=== PATIENT | female | born 1965 | race Caucasian/White ===

== ENCOUNTER → 2020-01-28 15:26 | Outpatient (BNVA) | payer OTHER, SELFPAY | PROVIDERS: Family Provider Family Medicine; PCP Family Medicine; Visit Provider Nurse Practitioner | DX: I10 Essential (primary) hypertension (principal); S30.861A Insect bite (nonvenomous) of abdominal wall, initial encounter; N39.0 Urinary tract infection, site not specified | CPT/HCPCS: 80053; 80061; 81003 ==

== ENCOUNTER → 2020-05-09 13:56 | Outpatient (BNVA) | payer OTHER, SELFPAY | PROVIDERS: Family Provider Family Medicine; PCP Family Medicine; Visit Provider Nurse Practitioner | DX: I10 Essential (primary) hypertension (principal) | CPT/HCPCS: 80053; 80061; 81003; 84443 ==

== ENCOUNTER 2020-05-11 09:50 | Day surgery (SDC) | payer OTHER, SELFPAY ==
[2020-05-09 11:19] VITALS: BMI 38.3
[2020-05-11 10:06] VITALS: BP 142/96; PULSE 68; RESP 18; TEMP 36.6; O2SAT 98
[2020-05-11] MEDS: sodium chloride 0.9% 1,000 ML 30 ML IV (10:16)
--- NOTE | 2020-05-11 10:45 | P.ANESASSM_ITS ---
Pre-Anesthetic Assessment Pre-Anesthetic Assessment: Height/Weight: Height 1.57 m Weight 92.079 kg Temp Pulse Resp BP Pulse Ox 97.8 F 68 18 142/96 98 05/11/20 10:06 05/11/20 10:06 05/11/20 10:06 05/11/20 10:06 05/11/20 10:06 Preop Diagnosis: Screening colonoscopy Proposed Procedure: Operation Date: 05/11/20 11:15 Proposed Procedures p Colonoscopy(Not Applicable) - Adonay Domingo MD Was Beta Shea taken within 24 hours: N/A Last intake: Intake Last Liquid Date 05/10/20 Last Liquid Time 23:59 Last Solid Date 05/09/20 Last Solid Time 18:00 Social: Social History: Tobacco and No alcohol Exam: Pre-Anes Outpt Exam: alert, oriented x 3, clear to auscultation bilaterally and regular rate & rhythm Airway: Submandibular: WNL Cervical ROM: WNL MP: 1 History/ROS: No significant complaints Pulmonary: Pulmonary: None reported CV/HEM: CV/HEM: HTN : : None reported Hepatic: Hepatic: None reported GI: GI: GERD Metabolic: Metabolic: None reported Musc/skel: Musc/skel: None reported Neuropsych: Neuropsych: Depression Anesthetic Plan: ASA status: 2 Anesthesia: MAC Meds/Allergies Current Medications: Current Medications Generic Name Dose Route Start Last Admin Trade Name Freq PRN Reason Stop Dose Admin Sodium Chloride 1,000 mls @ 30 ml s/hr 05/11/20 10:00 05/11/20 10:16 Sodium Chloride 0.9% IV 30 mls/hr .Q24H TED Administration PFSH Anesthesia PFSH: Medical History Hot flashes Symptoms controlled on paroxetine since 2018. Hypertension Reports having had hypertension in the past in 2011 or 2012. Symptoms are well controlled on medication managed by her primary care provider Selvin Pinzon. Mood changes States that since reaching menopause she has been having mood changes. She was initially on Pristiq however now symptoms are controlled with paroxetine managed by her primary care provider. She does not see a therapist or a psychiatrist. No pertinent past medical history Denies history of Diabetes, seizures, DVT/PE, asthma. Her primary care provider is EDY Millard Surgical History History of cholecystectomy laparoscopic procedure performed in [place] in her late 40s. 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
--- NOTE | 2020-05-11 11:20 | P.HP_ITS ---
Same Day Surgery H&P Indication for Procedure/HPI DATE OF PROCEDURE: May 11, 2020 CHIEF COMPLAINT/INDICATIONFOR SURGICAL PROCEDURE: Screening colonoscopy PREOP DIAGNOSIS: Screening colonoscopy PLANNED PROCEDRUE: Operation Date: 05/11/20 11:15 Proposed Procedures p Colonoscopy(Not Applicable) - Adonay Domingo MD This is a pleasant 55 years old female patient was referred to my practice to discuss screening colonoscopy, patient never had one before she denies bleeding per rectum except for some hemorrhoidal disease, no history of colon cancer that she is aware of and no weight loss. ROS All systems have been reviewed negative except as per the above or per problem list Medications/Allergies* Home Medications Medication Instructions Recorded Confirmed Type paroxetine HCl 40 mg tablet 40 mg PO DAILY 01/27/20 05/11/20 History omeprazole magnesium [Prilosec OTC] 20 mg PO DAILY 05/09/20 05/11/20 History Allergies/Adverse Reactions Allergy/AdvReac Type Severity Reaction Status Date / Time erythromycin base Allergy Unknown cramping Verified 05/11/20 11:21 sulfa drugs Allergy Unknown rash Uncoded 05/11/20 11:21 Current Medications: Generic Name Dose Route Start Last Admin Trade Name Freq PRN Reason Stop Dose Admin Sodium Chloride 1,000 mls @ 30 mls/hr 05/11/20 10:00 05/11/20 10:16 Sodium Chloride 0.9% IV 30 mls/hr .Q24H TED Administration Pertinent History/Comorbid Conditions* Medical History (Updated 03/14/20 @ 17:35 by Sheryl Sood MD) Hot flashes Symptoms controlled on paroxetine since 2018. Hypertension Reports having had hypertension in the past in 2011 or 2012. Symptoms are well controlled on medication managed by her primary care provider Selvin Pinzon. Mood changes States that since reaching menopause she has been having mood changes. She was initially on Pristiq however now symptoms are controlled with paroxetine managed by her primary care provider. She does not see a therapist or a psychiatrist. No pertinent past medical history Denies history of Diabetes, seizures, DVT/PE, asthma. Her primary care provider is EDY Millard Surgical History (Updated 03/14/20 @ 17:29 by Sheryl Sood MD) History of cholecystectomy laparoscopic procedure performed in [place] in her late 40s. 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
[2020-05-11 11:35] VITALS: BP 83/47; PULSE 66; RESP 18; TEMP 36.3; O2SAT 98
[2020-05-11 11:40] VITALS: BP 94/52; PULSE 62; RESP 18; O2SAT 99
[2020-05-11 11:50] VITALS: BP 137/86; PULSE 68; RESP 18; TEMP 36.4; O2SAT 100
== END 2020-05-11 12:10 | disposition home or self-care (01) ==
PROVIDERS: PCP Nurse Practitioner; Visit Provider Surgery
PROC: 0DJD8ZZ Inspection of Lower Intestinal Tract, Via Natural or Artificial Opening Endoscopic (ICD-10-PCS; CPT 45378; principal; 2020-05-11 11:15)
DX: Z12.11 Encounter for screening for malignant neoplasm of colon (principal); K57.30 Diverticulosis of large intestine without perforation or abscess without bleeding; K64.4 Residual hemorrhoidal skin tags; I10 Essential (primary) hypertension; K21.9 Gastro-esophageal reflux disease without esophagitis; Z82.49 Family history of ischemic heart disease and other diseases of the circulatory system; Z83.3 Family history of diabetes mellitus
CPT/HCPCS: 12345; 45378; J2704; J7030

== ENCOUNTER 2020-05-16 09:33 | Outpatient (CLI) | payer OTHER, SELFPAY ==
--- NOTE | 2020-05-16 09:30 | MM_ITS ---
WS: [id number] BILATERAL DIGITAL SCREENING MAMMOGRAPHY WITH CAD CLINICAL INFORMATION: screening HISTORY: Screening mammogram. No current complaints. COMPARISON: TECHNIQUE: Bilateral CC and MLO views. FINDINGS: Scattered fibroglandular densities bilaterally. No suspicious focal mass, asymmetry, calcifications, or architectural distortion. No evidence of malignancy. Stable 6 mm asymmetric density outer left sahara ast. MM/[id number] IMPRESSION: BI-RADS: 2-Benign FOLLOW UP: 1 Year Follow-up Recommend return to annual screening mammography.
== END 2020-05-16 09:34 | disposition home or self-care (01) ==
LOC: RADSHAW 09:36
PROVIDERS: PCP Nurse Practitioner; Visit Provider Obstetrics & Gynecology
DX: Z12.31 Encounter for screening mammogram for malignant neoplasm of breast (principal)
CPT/HCPCS: 77067

== ENCOUNTER → 2020-08-25 16:04 | Outpatient (BNVA) | payer OTHER, SELFPAY | PROVIDERS: PCP Nurse Practitioner; Visit Provider Obstetrics & Gynecology | DX: N95.0 Postmenopausal bleeding (principal) | CPT/HCPCS: 76830; 76856; 83001; 84450; 85025 ==

== ENCOUNTER → 2020-09-21 15:18 | Outpatient (BNVA) | payer OTHER, SELFPAY | PROVIDERS: PCP Nurse Practitioner; Visit Provider Obstetrics & Gynecology | DX: Z12.4 Encounter for screening for malignant neoplasm of cervix (principal); N95.0 Postmenopausal bleeding | CPT/HCPCS: 88175 ==

== ENCOUNTER → 2020-10-07 16:46 | Outpatient (BNVA) | payer OTHER, SELFPAY | PROVIDERS: PCP Nurse Practitioner; Visit Provider Obstetrics & Gynecology | DX: N95.0 Postmenopausal bleeding (principal) | CPT/HCPCS: 87635 ==

== ENCOUNTER 2020-10-13 08:04 | Day surgery (SDC) | payer OTHER, SELFPAY ==
[2020-10-11 10:54] VITALS: BMI 36.6
--- NOTE | 2020-10-11 11:23 | ANES.PREANE2 ---
Pre-Anesthetic Assessment Pre-Anesthetic Assessment: Height/Weight: Height 1.57 m Weight 90.718 kg Preop Diagnosis: Endometrial polyp Proposed Procedure: Operation Date: 10/13/20 09:25 Proposed Procedures p Hysteroscopy/polypectomy w/ Myosure 54111 N95.0 N84.0(Not Applicable) - Sheryl Sood MD s possible Dilation And Curettage (D&C)(Not Applicable) - Sheryl Sood MD Was Beta Shea taken within 24 hours: N/A Social: Social History: No alcohol and No tobacco Exam: Pre-Anes Outpt Exam: alert, oriented x 3, clear to auscultation bilaterally and regular rate & rhythm Airway: Submandibular: WNL Cervical ROM: WNL MP: 2 History/ROS: No significant complaints Pulmonary: Pulmonary: None reported CV/HEM: CV/HEM: HTN : : None reported Hepatic: Hepatic: None reported GI: GI: GERD Musc/skel: Musc/skel: None reported Neuropsych: Neuropsych: None reported Anesthetic Plan: ASA status: 2 Anesthesia: General PFSH Anesthesia PFSH: Medical History (Updated 09/22/20 @ 14:43 by Sheryl Sood MD) Hot flashes Symptoms controlled on paroxetine since 2018. Hypertension Diagnosed in 2012 and controlled with medications managed by PMD. 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 Mood changes Noted since menopause and managed on medication by PMD. Does not have a psychiatrist or therapist No pertinent past medical history Denies history of Diabetes, seizures, DVT/PE, asthma. Her primary care provider is EDY Millard Surgical History History of cholecystectomy laparoscopic procedure performed in [place] in her late 40s. History of colonoscopy (~04/2020) dr. robles. [facility] [place] Family History Brother Diabetes Stroke Hypertension Heart disease Father Diabetes Stroke Hypertension Hyperlipidemia Heart disease Mother Hypertension Heart disease Family/Other Breast cancer Maternal aunt; diagnosed at age 50 Denies family history of Colon cancer Ovarian cancer Uterine cancer Thyroid condition Social History (Updated 09/02/20 @ 12:21 by Sheryl Sood MD) Alcohol intake: never Housing: House Data Anesthesia Cardiac Studies: No Data to Display
[2020-10-11 11:35] LABS: Basophils % 0.4 %; Eosinophils # 0.3 10^3/uL (0.0-0.8); Eosinophils % 3.1 %; Hematocrit 40.8 % (37.0-47.0); Hemoglobin 12.7 g/dL (11.5-15.3); Lymphocytes # 1.6 10^3/uL (0.8-4.8); Lymphocytes % 19.2 %; Mean Corpuscular HGB Conc 31.1 g/dL (30.0-36.0); Mean Corpuscular Hemoglobin 27.9 pg (28.0-34.0); Mean Corpuscular Volume 89.7 fL (81-99); Mean Platelet Volume 10.1 fL (7.4-10.4); Monocytes # 0.3 10^3/uL (0.2-0.9); Monocytes % 3.9 %; Neutrophils # 6.14 10^3/uL (1.8-7.7); Nucleated Red Blood Cells % 0 %; Platelet Count 305 10^3/cmm (130-400); Red Blood Count 4.55 10^6/uL (4.1-5.3); Red Cell Distribution Width 13.6 % (12.1-15.1); White Blood Count 8.4 10^3/uL (4.0-10.0)
[2020-10-13] MEDS: sodium chloride 0.9% 500 ML IV (08:29)
[2020-10-13 08:35] VITALS: BP 164/88; PULSE 77; RESP 18; TEMP 36.4; O2SAT 100
[2020-10-13] MEDS: sodium chloride 0.9% 1,000 ML 30 ML IV (09:13)
--- NOTE | 2020-10-13 10:08 | W.PM.OPSUD ---
Surgery/Procedure H&P Update DATE OF PROCEDURE: October 13, 2020 DATE H&P PERFORMED: 09/28/20 H&P UPDATE INFORMATION: I have reviewed H&P completed within last 30 days, I have examined patient prior to procedure, No changes to prior documentation and H&P is in [facility] EMR on date indicated PREOP DIAGNOSIS: Endometrial polyp PLANNED PROCEDURE: Operation Date: 10/13/20 09:25 Proposed Procedures p Hysteroscopy/polypectomy w/ Myosure 59140 N95.0 N84.0(Not Applicable) - Sheryl Sood MD s possible Dilation And Curettage (D&C)(Not Applicable) - Sheryl Sood MD
[2020-10-13 11:06] VITALS: PULSE 99; RESP 16; TEMP 36.3; O2SAT 96
--- NOTE | 2020-10-13 11:06 | P.OP_ITS ---
Operative Report Date of procedure: October 13, 2020 OPERATIVE REPORT Date of surgery: 10/13/2020 Date of dictation: 10/13/2020 Preoperative diagnosis: Endometrial polyps, postmenopausal bleeding, obesity Postoperative diagnosis/findings: Same, grade 2-3 rectocele, grade 1-2 cystocele, grade 1-2 uterine prolapse under anesthesia, mobile small uterus. On hysteroscopy bilateral ostia visualized, endometrial polyps identified on the anterior and posterior wall of the uterus removed with Dwaine vee Procedure done: Hysteroscopy and polypectomy with MyoSure Specimens removed/disposition of specimens: Endometrial polyp Surgeon: Dr. Sheryl Aguilar physical therapist assistant: Jessy Anesthesia: General endotracheal tube anesthesia Estimated blood loss: Less than 25 ml Intravenous fluids: 500 mL of LR Urine output: 20 mL of clear urine via straight catheter prior to start of procedure Medications: As per anesthesia records Complications: None, patient was extubated and taken to the recovery room in stable condition PROCEDURE: After consent was obtained patient was taken to the operating room where she is placed under endotracheal tube anesthesia without any difficulty. She was placed supine on the table in lithotomy position. Care was taken to ensure that her legs were well positioned to avoid pressure points. She was then prepped and draped in the usual sterile fashion. Exam under anesthesia was done at this time which showed a findings noted above. The weighted speculum and lateral vaginal wall retractors were placed in the vagina and the cervix was visualized. The cervix appeared normal. The cervix was dilated to a 16 Curran dilator. This allowed placement of the Meyosure hysteroscope into the uterine cavity without any difficulty. Once the hysteroscope was placed in the uterine cavity, the endocervical canal was visualized and appeared normal.the uterine cavity was visualized and polyps that were noted at office hysteroscopy were identified---2 polyps about 5 to 8 mm in size 1 arising from the anterior wall and another arising from the posterior wall were identified. Bilateral ostia visualized and normal..Using the Myosure-lite the polyps were removed taking care to visualize the cutting edge at all times. Once this was done samples of the endometrial tissue in all 4 wiseman were obtained. Clear cavity was noted and the Myosure hysteroscope was withdrawn. Tenaculum was removed and good hemostasis was noted. Good hemostasis was achieved. All instruments were removed from the vagina. Patient was cleaned well and anesthesia was reversed without any difficulty. She was taken to the recovery in a stable condition. FOLLOW UP: Follow-up in 2 weeks and 6 weeks with surgeon MEDICATION ON DISCHARGE: Colace 100 mg by mouth every 12 hours when necessary constipation, 30 tablets, no refills Ibuprofen 800 mg by mouth every 8 hours when necessary pain, 60 tablets, no refills. Continue other home medication DISPOSITION: Home in a stable condition Pre-op Diagnosis: Endometrial polyp
[2020-10-13 11:10] VITALS: BP 169/105; PULSE 85; RESP 17; O2SAT 100
[2020-10-13 11:15] VITALS: BP 142/91; PULSE 80; RESP 20; O2SAT 100
[2020-10-13 11:20] VITALS: BP 102/66; PULSE 83; RESP 20; TEMP 36.6; O2SAT 95
[2020-10-13] MEDS: ibuprofen 800 mg tablet PO (11:55)
== END 2020-10-13 12:00 | disposition home or self-care (01) ==
PROVIDERS: PCP Nurse Practitioner; Visit Provider Obstetrics & Gynecology
PROC: 0UDB8ZZ Extraction of Endometrium, Via Natural or Artificial Opening Endoscopic (ICD-10-PCS; CPT 58558; principal; 2020-10-13 09:15)
DX: N84.0 Polyp of corpus uteri (principal); N95.0 Postmenopausal bleeding; E66.9 Obesity, unspecified; Z68.36 Body mass index [BMI] 36.0-36.9, adult; N81.6 Rectocele; N81.2 Incomplete uterovaginal prolapse; I10 Essential (primary) hypertension; K21.9 Gastro-esophageal reflux disease without esophagitis
CPT/HCPCS: 58558; 12345; 36415; 85025; 86850; 86900; 88305; J1100; J2250; J2405; J2704; J3010; J7030; J7040

== ENCOUNTER → 2021-03-03 09:26 | Outpatient (BNVA) | payer OTHER, SELFPAY | PROVIDERS: PCP Nurse Practitioner; Visit Provider Nurse Practitioner | DX: I10 Essential (primary) hypertension (principal); R45.86 Emotional lability; M79.18 Myalgia, other site; E78.2 Mixed hyperlipidemia | CPT/HCPCS: 80053; 80061; 81003; 84443 ==

== ENCOUNTER 2021-08-25 11:25 | Outpatient (CLI) | payer OTHER, SELFPAY ==
--- NOTE | 2021-08-25 11:30 | MM_ITS ---
WS: [id number] BILATERAL SCREENING DIGITAL MAMMOGRAM WITH CAD HISTORY: Z12.39 - Encounter for other screening for malignant neoplasm. COMPARISON: 05/16/2020 and 04/11/2017 Bilateral CC and MLO views submitted. Computer aided detection analyzed. Breast composition: There are scattered areas of fibroglandular density. No suspicious masses, microc alcifications or architectural distortion. Stable nodule upper-outer quadrant of the LEFT breast. MM/[id number] IMPRESSION: BI-RADS: 2-Benign FOLLOW UP: 1 Year Follow-up
== END 2021-08-25 11:26 | disposition home or self-care (01) ==
LOC: RADSHAW 11:31
PROVIDERS: PCP Nurse Practitioner; Visit Provider Obstetrics & Gynecology
DX: Z12.31 Encounter for screening mammogram for malignant neoplasm of breast (principal)
CPT/HCPCS: 77067

== ENCOUNTER → 2021-10-06 09:58 | Outpatient (BNVA) | payer OTHER, SELFPAY | PROVIDERS: PCP Nurse Practitioner; Visit Provider Nurse Practitioner Family | DX: Z20.822 Contact with and (suspected) exposure to COVID-19 (principal) | CPT/HCPCS: 87635 ==

== ENCOUNTER → 2022-04-10 10:30 | Outpatient (BNVA) | payer SELFPAY | PROVIDERS: PCP Nurse Practitioner; Visit Provider Dermatology | DX: Z01.89 Encounter for other specified special examinations (principal) ==

== ENCOUNTER → 2022-07-24 13:38 | Outpatient (BNVA) | payer OTHER, SELFPAY | PROVIDERS: PCP Nurse Practitioner Family; Visit Provider Nurse Practitioner Family | DX: G25.0 Essential tremor (principal); E78.2 Mixed hyperlipidemia; I10 Essential (primary) hypertension; R73.03 Prediabetes; K57.90 Diverticulosis of intestine, part unspecified, without perforation or abscess without bleeding; Z68.36 Body mass index [BMI] 36.0-36.9, adult; R45.86 Emotional lability; K59.00 Constipation, unspecified | CPT/HCPCS: 80053; 80061; 83036 ==

== ENCOUNTER → 2023-10-29 10:28 | Outpatient (BNVA) | payer OTHER, SELFPAY | PROVIDERS: PCP Nurse Practitioner Family; Visit Provider Nurse Practitioner Family | DX: E66.9 Obesity, unspecified (principal); R73.03 Prediabetes; I10 Essential (primary) hypertension; E78.2 Mixed hyperlipidemia; G25.0 Essential tremor | CPT/HCPCS: 80053; 80061; 83036; 84443 ==

== ENCOUNTER 2024-01-24 20:59 | Emergency (ER) | payer OTHER, SELFPAY ==
[2024-01-24 21:03] VITALS: PULSE 76; RESP 18; TEMP 36.6; O2SAT 99
--- NOTE | 2024-01-24 21:28 | XRR_ITS ---
PROCEDURE INFORMATION: Exam: XR Right Elbow Exam date and time: 01/24/2024 9:33 PM Age: 58 years old Clinical indication: Pain; Elbow; Right; Additional info: Fall pain TECHNIQUE: Imaging protocol: Radiologic exam of the right elbow. Views: 3 or more views. COMPARISON: No relevant prior studies available. FINDINGS: Bones/joints: Normal. Soft tissues: Normal. XR/XR elbow RT min 3V* [id number] IMPRESSION: No acute findings.
--- NOTE | 2024-01-24 21:29 | W.ED.EXTPRO ---
HPI - Extremity Problem General: Chief complaint: Extremity Injury, Upper Stated complaint: Right arm pain Time Seen by Provider: 01/24/24 21:18 History of Present Illness: Patient presents to the ER after stepping in a pothole falling apart. Patient landed on her low complains of pain with any movement or palpation. No obvious deformity but there are multiple scrapes and abrasions. Review of Systems General: Reports: 10 or more systems reviewed and unremarkable except in HPI and below PFSH ED PFSH: Medical History No pertinent past medical history Denies history of Diabetes, seizures, DVT/PE, asthma. Her primary care provider is EDY Millard Mood changes Hypertension Surgical History S/P dilation and curettage Hysteroscopy, polypectomy with MyoSure performed by Dr. Aguilar on 10/13/2020 at [facility]. Pathology showed benign proliferative endometrium with polyp without atypia, malignancy or hyperplasia. [place] of [place] (~04/2020[place] [facility] [place] of cholecystectomy laparoscopic procedure performed in [place] in her late 40s. Family History Brother Diabetes Stroke Hypertension Heart disease Father Diabetes Stroke Hypertension Hyperlipidemia Heart disease Mother Hypertension Heart disease Family/Other Breast cancer Maternal aunt; diagnosed at age 50 Denies family history of Colon cancer Ovarian cancer Uterine cancer Thyroid disease Social History Smoking and tobacco/nicotine status: never used tobacco/nicotine Second hand smoke exposure: No Alcohol intake: never Substance/Drug Use: never Adopted: No Caregiver/support person: No Lives independently: Yes Household members: spouse Housing: House Marital status: Number of children: 1 service: No Current occupational status: employed Current occupation: [employer] Do you think of yourself as: Straight/Heterosexual Current gender identity: Female Physical Exam HENMT: COMMON NORMALS: normocephalic, atraumatic, hearing grossly normal bilaterally, external ears normal, Normal external nose present, moist oral mucous membranes and oropharynx normal HEAD & SCALP: normocephalic and atraumatic NOSE: Normal external nose present EXTERNAL EAR: Yes external ears normal Neck/C-Spine: COMMON NORMALS: no JVD Chest: COMMONS NORMALS: normal inspection of the chest and normal palpation of entire chest wall Resp: COMMON NORMALS: normal respiratory effort, No retractions, No use of accessory muscles and clear to auscultation bilaterally AUSCULTATION: clear to auscultation bilaterally Cardio: COMMON NORMALS: no JVD, regular rate, regular rhythm, S1 normal heart sound present, S2 normal heart sound present, No gallops present (Cardio), No clicks present (Cardio), No murmurs present (Cardio) and No rub (Cardio) RATE: regular rate RHYTHM: regular rhythm HEART SOUNDS: S1 normal heart sound present and S2 normal heart sound present GI: COMMON NORMALS: Normal to inspection, nondistended, normoactive bowel sounds present, Soft to palpation, non-tender, No hepatosplenomegaly present and no masses PALPATION: Yes Soft to palpation and Yes No hepatosplenomegaly present Extremity: NARRATIVE EXTREMITY EXAM: Abrasions noted to right elbow region. Minimal tenderness with palpation. Full range of motion minimally limited by pain. Course Vital Signs: Vital signs: Vital Signs Temperature 97.9 F 01/24/24 21:03 Pulse Rate 76 01/24/24 21:03 Respiratory Rate 18 01/24/24 21:03 Pulse Oximetry 99 01/24/24 21:03 Oxygen Delivery Me thod Room Air 01/24/24 21:03 MDM - Extremity (Nontraumatic) Medical Decision Making X-rays were taken of the patient's right elbow and right wrist preliminary report by myself is for fracture. Will wait till radiologist gives official report but anticipate discharge to follow-up with her primary care. Differential Diagnosis Unlikely herpes zoster, gout, cellulitis, superficial thrombophlebitis, deep venous thrombosis of upper extremity, lower extremity edema or deep vein thrombosis of lower extremity Medical Records I reviewed the patient's medical records. Lab Data I reviewed the patient's lab results. Radiology Impressions Elbow X-Ray 01/24/24 21:28 IMPRESSION: No acute findings. Wrist X-Ray 01/24/24 21:38 IMPRESSION: No acute fracture. All radiology interpretation(s) finalized by discharge Discharge Plan Discharge Patient Disposition: Home Clinical Impression: Elbow pain, right, Acute pain of right wrist Fall Qualifiers: Encounter type: initial encounter Qualified Code(s): W19.XXXA - Unspecified fall, initial encounter Condition: Stable Prescriptions: No Action amlodipine 10 mg tablet 10 mg PO DAILY 90 Days Qty: 90 1RF atorvastatin 20 mg tablet 20 mg PO .QHS 90 Days Qty: 90 1RF bumetanide 1 mg tablet 1 mg PO DAILY PRN (Reason: edema) 90 Days Qty: 90 1RF clonidine HCl 0.1 mg tablet 0.1 mg PO .QHS 90 Days Qty: 90 1RF lisinopril 40 mg tablet 40 mg PO DAILY 90 Days Qty: 90 1RF paroxetine HCl 40 mg tablet 40 mg PO DAILY 90 Days Qty: 90 1RF propranolol 20 mg tablet 20 mg PO .QD 90 Days Qty: 90 1RF Discharge Orders: Discharge ED (Routine); Ordered 01/24/24 Ordered By: Yehuda Harmon Referrals: Josselyn Dahl [employer] [Primary Care Provider] - 1 week Patient Instructions: Musculoskeletal Pain (ED) Activity Restrictions/Additional Instructions: The preliminary report from the x-rays of your right elbow and right wrist are negative for fracture. The radiologist should be reading them later tonight if he sees anything different then negative we will call you as treatment may change. Otherwise follow-up with your primary care physician within next 7 days for further evaluation and treatment use Tylenol and/or Motrin as needed for pain control. Coding Level of Care Code ED Core Dipper for Nancy Humphreys
--- NOTE | 2024-01-24 21:38 | XRR_ITS ---
PROCEDURE INFORMATION: Exam: XR Right Wrist Exam date and time: 01/24/2024 9:39 PM Age: 58 years old Clinical indication: Pain; Wrist; Right; Additional info: Fall pain TECHNIQUE: Imaging protocol: Radiologic exam of the right wrist. Views: 3 or more views. COMPARISON: CR ( EX, ) 01/24/2024 9:33 PM FINDINGS: Bones/joints: Moderate degenerative changes at the 1st carpometacarpal joint. No acute fracture. Soft tissues: Normal. XR/XR wrist RT min 3V* [id number] IMPRESSION: No acute fracture.
== END 2024-01-24 22:50 | disposition home or self-care (01) ==
PROVIDERS: Emergency Provider Emergency Medicine; PCP Nurse Practitioner Family
DX: M25.521 Pain in right elbow (principal); M25.531 Pain in right wrist; I10 Essential (primary) hypertension; W18.39XA Other fall on same level, initial encounter
CPT/HCPCS: 73080; 73110; 99283

== ENCOUNTER → 2024-05-07 13:04 | Outpatient (BNVA) | payer OTHER, SELFPAY | PROVIDERS: PCP Nurse Practitioner Family; Visit Provider Nurse Practitioner Family | DX: I10 Essential (primary) hypertension (principal); E78.2 Mixed hyperlipidemia; R73.03 Prediabetes; E66.9 Obesity, unspecified | CPT/HCPCS: 80053; 80061; 83036; 85025 ==

== ENCOUNTER → 2024-11-23 15:32 | Outpatient (BNVA) | payer OTHER, SELFPAY | PROVIDERS: PCP Nurse Practitioner Family; Visit Provider Nurse Practitioner Family | DX: E11.9 Type 2 diabetes mellitus without complications (principal); M50.30 Other cervical disc degeneration, unspecified cervical region; M19.011 Primary osteoarthritis, right shoulder | CPT/HCPCS: 72040; 73030; 80053; 80061; 82306; 82607; 83036; 83735; 83880; 84443; 84550; 85025; 85651; 86038; 86140; 86200; 86431 ==

== ENCOUNTER → 2025-06-02 09:57 | Outpatient (BNVA) | payer OTHER, SELFPAY | PROVIDERS: PCP Nurse Practitioner Family; Visit Provider Nurse Practitioner Family | DX: E11.9 Type 2 diabetes mellitus without complications (principal) | CPT/HCPCS: 80053; 80061; 82607; 83036; 83735; 84443; 85025 ==

== ENCOUNTER 2025-06-03 09:43 | Outpatient (CLI) | payer OTHER, SELFPAY ==
--- NOTE | 2025-06-03 10:00 | MM_ITS ---
WS: [id number] BILATERAL SCREENING DIGITAL TOMOSYNTHESIS MAMMOGRAM WITH CAD HISTORY: Z12.39 - Encounter for other screening for malignant neop... COMPARISON: 08/25/2021, 05/16/2020 Bilateral CC and MLO views with tomosynthesis and synthetic mammography submitted. Computer aided detection analyzed. Breast composition: There are scattered areas of fibroglandular density. No suspicious masses, microcalcifications or architectural distortion. Stable calcifications in the central RIGHT breast. Asymmetries are stable within each breast. MM/MM scr BI tomosynthesis [id number] IMPRESSION: BI-RADS: 2 - Benign. FOLLOW UP: 1 Year Follow-up
== END 2025-06-03 09:44 | disposition home or self-care (01) ==
PROVIDERS: PCP Nurse Practitioner Family; Visit Provider Nurse Practitioner Family
DX: Z12.31 Encounter for screening mammogram for malignant neoplasm of breast (principal)
CPT/HCPCS: 77063; 77067